=== PATIENT | female | born 1955 | race Caucasian/White ===

== ENCOUNTER 2018-02-02 05:15 | Inpatient (IN) | payer OTHER ==
[~2018-02-02] VITALS: Ht 172.7 cm; Wt 73.5 kg
[2018-02-02] MEDS ORDERED: CLINDAMYCIN 600 mg/50mL D5W 50 ML IV ONE (05:56)
[2018-02-02] MEDS ORDERED: ONDANSETRON HCL 4 MG/2 ML VIAL IVP ONE (07:00)
[2018-02-02] MEDS ORDERED: PROPOFOL 200MG/ 20ML VIAL (DIPRIVAN) IV ONE (07:00)
[2018-02-02] MEDS ORDERED: DEXAMETHASONE SOD PHOSPHATE 4 MG/ML VIAL IVP ONE (07:00)
[2018-02-02] MEDS ORDERED: MIDAZOLAM HCL 5 MG/5 ML VIAL IVP ONE (07:00)
[2018-02-02] MEDS ORDERED: KETOROLAC TROMETHAMINE 30 MG VIAL IVP ONE (07:00)
[2018-02-02] MEDS ORDERED: fentaNYL CITRATE 250 MCG/5 ML AMP IV ONE (07:00)
[2018-02-02] MEDS ORDERED: SEVOFLURANE 15 MIN GAS INH ONE (07:00)
[2018-02-02] MEDS ORDERED: ROCURONIUM BROMIDE 10 MG/ML (ZEMURON) IV ONE (07:00)
[2018-02-02] MEDS ORDERED: CLINDAMYCIN PHOSPHATE 600 mg/50mL D5W IV ONE ×2 (07:00)
[2018-02-02] MEDS ORDERED: IBUPROFEN 600 MG TABLET PO PRN (07:45)
[2018-02-02] MEDS ORDERED: ACETAMINOPHEN/CODEINE 300 MG-30 MG TABLET PO PRN (07:45)
[2018-02-02] MEDS ORDERED: ONDANSETRON HCL 4 MG/2 ML VIAL IVP PRN (07:45)
[2018-02-02] MEDS ORDERED: MORPHINE 4 MG/ML INJ. SYRINGE IVP PRN ×3 (07:45→08:15)
[2018-02-02] MEDS ORDERED: LR 1,000 ML IV SCH (08:10)
[2018-02-02] MEDS ORDERED: MORPHINE SULFATE 10 MG/ML VIAL IVP PRN (08:15)
[2018-02-02] MEDS ORDERED: MEPERIDINE HCL/PF 25 MG/ML DISP.SYRIN IVP PRN (08:15)
[2018-02-02 10:00] VITALS: BP_SYST 127
[2018-02-02 11:31] VITALS: BP_SYST 127
[2018-02-02 16:20] VITALS: BP_SYST 128
[2018-02-02 20:00] VITALS: BP_SYST 111
[2018-02-03 00:10] VITALS: BP_SYST 96
[2018-02-03 06:54] LABS: BASOPHILS % (AUTO) 1.4 % (0.0-2.0); EOSINOPHILS % (AUTO) 0.1 % (0.0-4.0); HEMATOCRIT 25.8 % (36-48); HEMOGLOBIN 8.5 g/dL (12.0-16.0); LYMPHOCYTES # (AUTO) 0.5 K/uL (1.0-5.5); LYMPHOCYTES % (AUTO) 15.1 % (20.5-51.5); MEAN CORPUSCULAR HEMOGLOBIN 31 pg (27-31); MEAN CORPUSCULAR HGB CONC 33 % (32-36); MEAN CORPUSCULAR VOLUME 93 fL (79.0-98.0); MONOCYTES % (AUTO) 0.2 % (1.7-9.3); NEUTROPHILS % (AUTO) 83.2 % (40.0-70.0); PLATELET COUNT (AUTO) 319 K/uL (130-430); RED BLOOD CELL COUNT(AUTO) 2.78 MIL/uL (4.2-6.2); RED CELL DISTRIBUTION WIDTH 11.9 % (9.0-15.0); WHITE BLOOD COUNT (AUTO) 3.5 K/uL (4.8-10.8)
[2018-02-03 08:00] VITALS: BP_SYST 102
[2018-02-03 13:02] VITALS: BP_SYST 107
[2018-02-03] MEDS: BETHANECHOL CHLORIDE 25 MG TABLET (URECHOLINE) PO SCH ×3 (13:10→22:15)
[2018-02-03 16:48] VITALS: BP_SYST 136; BP_SYST 148
[2018-02-04 00:38] VITALS: BP_SYST 120
[2018-02-04] MEDS: BETHANECHOL CHLORIDE 25 MG TABLET (URECHOLINE) PO SCH ×4 (03:10→15:42)
[2018-02-04] MEDS: BISACODYL 5 MG TABLET.DR (DULCOLAX) PO SCH ×2 (06:34→08:43)
[2018-02-04 08:00] VITALS: BP_SYST 125
[2018-02-04 12:29] VITALS: BP_SYST 108
[2018-02-04 15:56] VITALS: BP_SYST 127
[2018-02-04 16:35] VITALS: BP_SYST 104
== END 2018-02-04 17:50 | disposition home or self-care (01) | DRG 743 ==
LOC: SMU 05:15
PROVIDERS: ADMIT Obstetrics & Gynecology; ATTEND Obstetrics & Gynecology
PROC: 0JQC0ZZ Repair Pelvic Region Subcutaneous Tissue and Fascia, Open Approach (ICD-10-PCS; 2018-02-02)
PROC: 0JQC0ZZ Repair Pelvic Region Subcutaneous Tissue and Fascia, Open Approach (ICD-10-PCS; 2018-02-02)
PROC: 0TVD0ZZ Restriction of Urethra, Open Approach (ICD-10-PCS; 2018-02-02)
PROC: 0UT27ZZ Resection of Bilateral Ovaries, Via Natural or Artificial Opening (ICD-10-PCS; 2018-02-02)
PROC: 0UT77ZZ Resection of Bilateral Fallopian Tubes, Via Natural or Artificial Opening (ICD-10-PCS; 2018-02-02)
PROC: 0UT97ZZ Resection of Uterus, Via Natural or Artificial Opening (ICD-10-PCS; principal; 2018-02-02 07:30)
DX: N81.4 Uterovaginal prolapse, unspecified (principal); N39.3 Stress incontinence (female) (male); Z88.0 Allergy status to penicillin
CPT/HCPCS: 36415; 85025; 86886; 86900; 86901; 87081; 88305; J1100; J1885; J2250; J2405; J2704; J3010; J3490; J7120